=== PATIENT | female | born 1975 | race Caucasian/White ===

== ENCOUNTER 2024-02-12 20:07 | Emergency (ER) | payer BC ==
[~2024-02-12] VITALS: Ht 162.6 cm; Wt 71.7 kg
[2024-02-12] MEDS ORDERED: VALA100026 PO (22:59)
[2024-02-12] MEDS ORDERED: PRED50TA PO (22:59)
[2024-02-12 23:22] VITALS: BP 140/85; TEMP 98.4; O2SAT 98
== END 2024-02-12 23:22 | disposition home or self-care (01) ==
LOC: ER 20:13
DX: B02.9 Zoster without complications (principal); Z79.52 Long term (current) use of systemic steroids; Z79.624 Long term (current) use of inhibitors of nucleotide synthesis